=== PATIENT | female | born 1960 | race Caucasian/White ===

== ENCOUNTER 2024-08-08 18:36 | Emergency (ER) | payer MEDICARE, OTHER, SELFPAY ==
[2024-08-08 18:39] VITALS: BP 140/60; PULSE 83; RESP 16; TEMP 36.1; O2SAT 99; BMI 20.5
--- NOTE | 2024-08-08 18:42 | DI.RAD.S_ITS ---
PROCEDURE: XR ANKLE RT MIN 3V INDICATIONS: twisted ankle/foot, felt pop TECHNIQUE: 3 views of the ankle were acquired. COMPARISON: None. FINDINGS: Bones: Mild background degenerative changes. No displaced fracture is seen. No dislocation. Mildly displaced 5th metatarsal base fracture. Soft tissues: Small dystrophic calcifications seen adjacent to the tibia. Plantar calcaneal enthesopathy. IMPRESSION: Mildly displaced 5th metatarsal base fracture. Background degenerative changes of the ankle with calcaneal enthesopathy. Dictated by: Artie Montgomery M.D. on 08/08/2024 at 19:19 Approved by: Artie Montgomery M.D. on 08/08/2024 at 19:20
--- NOTE | 2024-08-08 18:42 | DI.RAD.S_ITS ---
PROCEDURE: XR FOOT RT MIN 3V INDICATIONS: twisted ankle/foot, felt pop TECHNIQUE: 3 views of the foot were acquired. COMPARISON: None. FINDINGS: Bones: Mildly displaced 5th metatarsal base fracture. Background degenerative changes, particularly in the midfoot and 1st MTP, [id number]. Calcaneal enthesopathy. Soft tissues: No suspicious calcifications. IMPRESSION: Mildly displaced 5th metatarsal base fracture. Background 1st MTP and midfoot degenerative changes. Dictated by: Artie Montgomery M.D. on 08/08/2024 at 19:20 Approved by: Artie Montgomery M.D. on 08/08/2024 at 19:21
--- NOTE | 2024-08-08 19:49 | ED.LOWEXIN ---
HPI - Extremity Injury (Lower) General Chief Complaint: Extremity Injury, Lower Stated Complaint: Fall off step, Rt foot px Time Seen by Provider: 08/08/24 19:43 Source: patient Mode of arrival: Wheelchair History of Present Illness HPI Narrative: patient is a 64-year-old female here for evaluation of a right foot injury. Patient states she stepped off a step and twisted her ankle and since that time has had pain along the outside of the right foot. No other injuries from the event. Related Data Home Medications Medication Instructions Recorded Confirmed LEVOTHYROXINE SODIUM (SYNTHROID) 0.125 mg PO QDAY ##0 10/31/12 [ZANTAC] PRN ##0 10/31/12 Allergies Allergy/AdvReac Type Severity Reaction Status Date / Time Penicillins AdvReac Rash Verified 08/08/24 18:39 Review of Systems Constitutional Constitutional: Reports system reviewed and no additional complaints, except as documented Musculoskeletal Musculoskeletal: Reports system reviewed and no additional complaints, except as documented Integumentary/Breasts Skin/Breast: Reports system reviewed and no additional complaints, except as documented Neurologic Neurologic: Reports system reviewed and no additional complaints, except as documented Patient History Social History Smoking Status: Never smoker Smoking Status: Never smoker Substance Use Type: does not use Exam Initial Vital Signs Initial Vital Signs: Vital Signs Temperature 97.0 F L 08/08/24 18:39 Pulse Rate 83 08/08/24 18:39 Respiratory Rate 16 08/08/24 18:39 Blood Pressure 140/60 08/08/24 18:39 Pulse Oximetry 99 08/08/24 18:39 Oxygen Delivery Method Room Air 08/08/24 18:39 HENNH Head: normal to inspection and normocephalic Cardio Pulses: dorsalis pedis present on the right Skin General: no rashes or lesions noted Neuro Sensory Exam: no sensory deficits noted Extrem Other: Discomfort with palpation along the lateral aspect of the right foot. Some discomfort along the lateral malleolus. Achilles tendon is intact. Dorsum of the foot is unremarkable. Proximal fibula is unremarkable. Procedures Orthopedic Splinting/Casting Injury #1: Side: right Lower Extremity Injury Location: foot Lower Extremity Immobilizer: posterior splint and stirrup splint Other Orthopedic Equipment: crutches Post splinting neuro exam: no change Post splinting vascular exam: no change Course Orders Ordered: ED Orders 08/08/24 18:42 XR ankle RT min 3V Stat XR foot RT min 3V Stat Vital Signs Vital signs: Vital Signs - 8 hr 08/08/24 18:39 08/08/24 20:57 Temperature 97.0 F L Pulse Rate 83 85 Respiratory Rate 16 18 Blood Pressure 140/60 123/67 Pulse Oximetry 99 97 Oxygen Delivery Method Room Air Room Air MDM - Extremity Injury (Lower) Imaging Data Extremity x-ray #1: Radiologist's Impression: PROCEDURE: XR ANKLE RT MIN 3V INDICATIONS: twisted ankle/foot, felt pop TECHNIQUE: 3 views of the ankle were acquired. COMPARISON: None. FINDINGS: Bones: Mild background degenerative changes. No displaced fracture is seen. No dislocation. Mildly displaced 5th metatarsal base fracture. Soft tissues: Small dystrophic calcifications seen adjacent to the tibia. Plantar calcaneal enthesopathy. IMPRESSION: Mildly displaced 5th metatarsal base fracture. Background degenerative changes of the ankle with calcaneal enthesopathy. Extremity x-ray #2: Radiologist's Impression: PROCEDURE: XR FOOT RT MIN 3V INDICATIONS: twisted ankle/foot, felt pop TECHNIQUE: 3 views of the foot were acquired. COMPARISON: None. FINDINGS: Bones: Mildly displaced 5th metatarsal base fracture. Background degenerative changes, particularly in the midfoot and 1st MTP, [id number]. Calcaneal enthesopathy. Soft tissues: No suspicious calcifications. IMPRESSION: Mildly displaced 5th metatarsal base fracture. Background 1st MTP and midfoot degenerative changes. MDM Narrative Medical decision making narrative: Neurovascularly intact. Does have fracture of the base of the 5th metatarsal. Placed in a splint. Crutches. Nonweightbearing. Follow up with Orthopedic surgery. Discharge Plan Departure Patient Disposition: Home Clinical Impression: Foot fracture, right Instructions: How to Use Crutches, DI for Foot Fracture, How to Take Care of Your Splint Activity Restrictions/Additional Instructions: The splint that was placed today needs to be treated like a cast. You need to keep it on and keep it clean and keep it dry. On Saturday morning contact the Orthopedic Department in the number provided below for a follow-up. Return to the emergency department for new symptoms. Prescriptions: No Action LEVOTHYROXINE SODIUM (SYNTHROID) 0.125 mg PO QDAY Qty: 0 [ZANTAC] PRN Qty: 0 Referrals: Geri Sevilla MD [Physician] - Miscellaneous,MD Niecy [Primary Care Provider] - Stand Alone Forms: Patient Portal/API
[2024-08-08 20:57] VITALS: BP 123/67; PULSE 85; RESP 18; O2SAT 97
== END 2024-08-08 20:59 | disposition home or self-care (01) ==
PROVIDERS: Emergency Provider Emergency Medicine
DX: S92.351A Displaced fracture of fifth metatarsal bone, right foot, initial encounter for closed fracture (principal); X50.1XXA Overexertion from prolonged static or awkward postures, initial encounter
CPT/HCPCS: 29515; 73610; 73630; 99283